=== PATIENT | male | born 1950 ===

== ENCOUNTER 2020-02-04 18:12 | Emergency (ER) | payer OTHER ==
--- NOTE | 2020-02-04 18:28 | ED ---
Neurological HPI - HPI Summary HPI Summary: Arrival at 1810. Provider at bedside upon arrival. The patient is a 69-year-old male arriving via ambulance from home to [facility] Emergency Department with a chief complaint of right-sided numbness about 45 minutes prior to arrival with last known well just before onset at 1725. He reports he was carrying heavy boxes when he suddenly felt numbness from head to toe on the right side, so he called 911. When EMS arrived, they found his blood pressure to be 210/110 mmHg. During transport, the numbness improved to only be located in the right side of the face and right upper extremity as the rest of the numbness has resolved. EMS repeated his blood pressure and found it to be improved although still elevated to 180s systolic. No recent traveling. No sick contact. He denies upper respiratory symptoms including fevers, cough, or shortness of breath. Not currently on any blood thinners. Past medical history includes B-cell lymphoma in remission, right femur fracture. Nonsmoker. No alcohol use, no substance use. Medications reviewed. Allergies noted. Varsha Landa called at 181. Patient immediately to CT. - History of Current Complaint Chief Complaint: EDNeurologicalDeficit Stated Complaint: RT SIDE NUMBNESS Last Known Well Date: 02/04/2020 17:25 Hx Obtained From: Patient Onset/Duration: Sudden Onset, Still Present - but improved Timing: Sudden Onset Onset Severity: Moderate Current Severity: Moderate Neurological Deficit Location: RUE, RLE Pain Scale Used: 0-10 Numeric Character: Numbness/Tingling - right side of body Aggravating: Nothing Alleviating: Nothing Associated Signs and Symptoms: Positive: Numbness. Negative: Fever - Allergy/Home Medications Allergies/Adverse Reactions: Allergies Allergy/AdvReac Type Severity Reaction Status Date / Time No Known Allergies Allergy Verified 02/04/20 18:48 Home Medications: Home Medications NK [No Home Medications Reported] 02/04/20 [History Confirmed 02/04/20] PMH/Surg Hx/FS Hx/Imm Hx Endocrine/Hematology History: Denies: Hx Diabetes Cardiovascular History: Denies: Hx Hypercholesterolemia, Hx Hypertension - Cancer History Cancer Type, Location and Year: b-cell lymphoma (remission) - Surgical History Surgical History: Yes Surgery Procedure, Year, and Place: right femur fracture - Family History Known Family History: Negative: Diabetes, Renal Disease - Social History Alcohol Use: Occasionally Hx Substance Use: No Substance Use Type: Reports: None Hx Tobacco Use: No Smoking Status (MU): Never Smoked Tobacco Review of Systems Negative: Fever Negative: Shortness Of Breath, Cough Positive: Numbness - right-sided All Other Systems Reviewed And Are Negative: Yes Physical Exam - Summary Physical Exam Summary: VITAL SIGNS: Reviewed. GENERAL: Patient is a well-developed and nourished male who is lying comfortable in the stretcher. Patient is not in any acute respiratory distress. HEAD AND FACE: No signs of trauma. No ecchymosis, hematomas or skull depressions. No sinus tenderness. EYES: PERRLA, EOMI x 2, No injected conjunctiva, no nystagmus. No photophobia. EARS: Hearing grossly intact. Ear canals and tympanic membranes are within normal limits. MOUTH: Oropharynx within normal limits. NECK: Supple, trachea is midline, no adenopathy, no JVD, no carotid bruit, no c- spine tenderness, neck with full ROM. No meningeal signs, no Kernig's or brudzinskis signs. CHEST: Symmetric, no tenderness at palpation. LUNGS: Clear to auscultation bilaterally. No wheezing or crackles. CVS: Regular rate and rhythm, S1 and S2 present, no murmurs or gallops appreciated. ABDOMEN: Soft, non-tender. No signs of distention. No rebound, no guarding, and no masses palpated. Bowel sounds are normal. EXTREMITIES: FROM in all major joints, no edema, no cyanosis or clubbing. NEURO: Alert and oriented x 3. Speech is normal and follows commands. NIH: 1 ( see scale). SKIN: Dry and warm. GCS: 15. Triage Information Reviewed: Yes Vital Signs Reviewed: Yes - Luanne Coma Scale Best Eye Response: 4 - Spontaneous Best Motor Response: 6 - Obeys Commands Best Verbal Response: 5 - Oriented Coma Scale Total: 15 Procedures - Sedation Patient Received Moderate/Deep Sedation with Procedure: No Diagnostics - Laboratory Result Diagrams: 02/04/20 18:23 02/04/20 18:23 Lab Statement: Any lab studies that have been ordered have been reviewed, and results considered in the medical decision making process. - Radiology Chest X-Ray Radiology Interpretation Completed By: ED Physician Summary of Radiographic Findings: No acute process. Dr. Torres has reviewed and interpreted this image, pending official read. - CT Brain CT CT Interpretation Completed By: Radiologist Summary of CT Findings: Impression: 1. Small 0.8 cm hyperdensity within the left thalamus. Differential includes small acute intraparenchymal hemorrhage versus hyperdense lesion such as cavernous angioma. Recommend follow-up MRI brain with and without contrast. 2. Other chronic findings, as above. Dr. Torres has reviewed this report. - EKG 183 Cardiac Rate: Bradycardia - 58 BPM EKG Rhythm: Sinus Bradycardia Summary of EKG Findings: EKG at 1833 reveals sinus bradycardia at 58 BPM. Normal axis. No ST elevation. Dr. Torres has reviewed and interpreted this EKG. NIH Scale - NIH Scale Level of Consciousness: Alert/Keenly Responsive Ask Patient the Month and His/Her Age: Both Correct Ask Pt to Open/Close Eyes and Warehouse Trainer/Release Non-Paretic Hand: Both Correctly Best Gaze (Only Horizontal Eye Movement): Normal Visual Field Testing: No Visual Loss Facial Paresis-Pt to Smile & Close Eyes or Grimace Symmetry: Normal/Symmetrical Motor Function - Right Arm: No Drift-Holds 10 Seconds Motor Function - Left Arm: No Drift-Holds 10 Seconds Motor Function - Right Leg: No Drift-Holds 10 Seconds Motor Function - Left Leg: No Drift-Holds 10 Seconds Limb Ataxia-Must be out of Proportion to Weakness Present: Absent Sensory (Use Pinprick to Test Arms/Legs/Trunk/Face): Pinprick Less on Affected Best Language (Describe Picture, Name Items): No Aphasia Dysarthria (Read Several Words): Normal Extinction and Inattention: No Abnormality Total Score: 1 NIH Stroke Scale Comment: done at 1818 Re-Evaluation - Re-Evaluation First Eval Re-Evaluation Time: 18:55 Comment: Updated patient on need for transfer concerning CT results. Patient agreeable with plan. Blood pressure is 130/80 mmHg now. Course/Dx - Course Assessment/Plan: The patient is a 69-year-old male arriving via ambulance from home to [facility] Emergency Department with a chief complaint of right-sided numbness about 45 minutes prior to arrival with last known well just before onset at 1730. He reports he was carrying heavy boxes when he suddenly felt numbness from head to toe on the right side, so he called 911. When EMS arrived, they found his blood pressure to be 210/110 mmHg. During transport, the numbness improved to only be located in the right side of the face and right upper extremity as the rest of the numbness has resolved. EMS repeated his blood pressure and found it to be improved although still elevated to 180s systolic. No recent traveling. No sick contact. He denies upper respiratory symptoms including fevers, cough, or shortness of breath. Not currently on any blood thinners. Past medical history includes B-cell lymphoma in remission, right femur fracture. Nonsmoker. No alcohol use, no substance use. Medications reviewed. Allergies noted. In the ED course, the patient was placed on a youth nutritional monitor, IV access was obtained. Past medical records reviewed. PMH: B cell lymphoma in remission. EKG: sinus bradycardia w/o ST elevations. Blood test w/o a significant abnormality except for BUN 31, glucose 109. CXR impression: No acute process. Head CT IMPRESSION: 1. Small 0.8 cm hyperdensity within the left thalamus. Differential includes small acute intraparenchymal hemorrhage versus hyperdense lesion such as cavernous angioma. Recommend follow-up MRI brain with and without contrast. 2. Other chronic findings, as above. At 7 PM: patient is feeling better, the tingling is only in the face and right UE. Blood pressure now is 130/80. I discussed my physical exam, findings and test results with Dr. Devries and she accepts the patient for transfer. The patient continues to be hemodynamically stable alert and oriented 3. - Diagnoses Provider Diagnoses: Intraparenchymal hemorrhage of brain During the Visit The Following Alert/Code Occurred: Varsha Landa - called at 1819 - Physician Notifications Discussed Care Of Patient With: Adam Devries - neurology [facility] Time Discussed With Above Provider: 19:07 Instructed by Provider To: Other - I discussed the patients case with Dr. Devries, who accepts the patient for transfer to [facility]. Reason For Transfer: Specialty available at [facility] but not cessation systems outreach specialist. - Patient requires neurosurgery who is not cessation systems outreach specialist at [facility] at this time. - Critical Care Time Critical Care Time: 30-74 min Critical Care Statement: Critical care time is provided exclusive of any time spent performing procedures. Discharge ED - Sign-Out/Discharge Documenting (check all that apply): Patient Departure - Patient to be transferred to [facility] accepted by Dr. Devries. - Discharge Plan Condition: Stable Disposition: TRANS HIGHER LVL OF CARE FAC Referrals: No Primary Care Phys,NOPCP [Primary Care Provider] - - Billing Disposition and Condition Condition: STABLE Disposition: Trans Higher Lvl of Care Fac - Attestation Statements Document Initiated by Joeibjose: Yes Documenting Scribe: Zoey Morales Provider For Whom Johana is Documenting (Include Credential): Trenton Torres MD Scribe Attestation: I, Zoey Morales, scribed for Trenton Torres MD on 02/04/20 at 1945. Scribe Documentation Reviewed: Yes Provider Attestation: The documentation as recorded by the Zoey lobo accurately reflects the service I personally performed and the decisions made by me, Trenton Torres MD Status of Scribe Document: Viewed
[2020-02-04 18:53] LABS: ABS Eosinophils 0.1 10^3/ul (0-0.6); ABS Lymphocytes 1.9 10^3/ul (1.0-4.8); ABS Monocytes 0.6 10^3/ul (0-0.8); ABS Neutrophils 3.6 10^3/ul (1.5-7.7); Eosinophil % 1.4 %; Hematocrit 45 % (42-52); Hemoglobin 15.4 g/dL (14.0-18.0); Lymphocyte % 30.3 %; Mean Corpuscular HGB Conc 34 g/dL (31-36); Mean Corpuscular Hemoglobin 32 pg (27-31); Mean Corpuscular Volume 92 fL (80-94); Mean Platelet Volume 10.2 fL (7.4-10.4); Nucleated Red Blood Cells % 0.1; Platelet Count 136 10^3/uL (150-450); Red Blood Count 4.87 10^6 /uL (4.18-5.48); Red Cell Distribution Width 14 % (10-15); White Blood Count 6.2 10^3/uL (3.5-10.8)
[2020-02-04] MEDS: NS 0.9% 1000 ML** 1,000 ML IV ONE ×2 (18:55→18:57)
[2020-02-04 19:00] LABS: Activated Partial Thrombo Time 32.7 seconds (26.0-38.0); INR 1.02 (0.82-1.09)
[2020-02-04 19:09] LABS: Albumin 3.7 g/dL (3.2-5.2); Albumin/Globulin Ratio 1.3 (1-3); BUN/Creatinine Ratio 30.7 (8-20); Calcium 8.7 mg/dL (8.6-10.3); EGFR African American 88.1 (>60); EGFR Non-African American 72.8 (>60); Globulin 2.8 g/dL (2-4); HDL Cholesterol 52.9 mg/dL; Potassium 3.6 mmol/L (3.5-5.0); Total Bilirubin 0.5 mg/dL (0.2-1.0); Total Protein 6.5 g/dL (6.4-8.9)
[2020-02-04 19:11] LABS: Troponin I 0.01 ng/mL (<0.03)
[2020-02-04 20:01] VITALS: BP 162/97
== END 2020-02-04 20:01 | disposition short-term general hospital (02) ==
LOC: ED 18:12
DX: I61.6 Nontraumatic intracerebral hemorrhage, multiple localized (principal); R11.0 Nausea; R20.0 Anesthesia of skin; Z85.79 Personal history of other malignant neoplasms of lymphoid, hematopoietic and related tissues
CPT/HCPCS: 36415; 70450; 71045; 80053; 80061; 83605; 84484; 85025; 85610; 85730; 93005; 96360; 96361; 99285